=== PATIENT | female | born 1985 | race Caucasian/White ===

== ENCOUNTER → 2016-10-01 | Outpatient (CLI) | payer BC ==
[~2016-10-01] MED LIST: BCPILLS PO; MULT-506 PO
== END | disposition home or self-care (01) ==
LOC: C.PATHSPEC 17:35
PROVIDERS: ATTEND Obstetrics & Gynecology
DX: R87.612 Low grade squamous intraepithelial lesion on cytologic smear of cervix (LGSIL) (principal); N72 Inflammatory disease of cervix uteri

== ENCOUNTER → 2016-11-03 | Day surgery (SDC) | payer BC ==
[2016-10-06 14:49] VITALS: Ht 167.6 cm; Wt 94.1 kg
--- NOTE | 2016-10-25 10:14 | HISTORY & PHYSICAL EXAMINATION ---
DATE OF ADMISSION: 11/03/2016 The patient is for surgery on 11/03/2016. HISTORY OF PRESENT ILLNESS: The patient is a 31-year-old old white female 0 who is for LEEP of the cervix as well as excision of vulvar lesions. The patient had low grade KRISTA on Pap February 2015. Colposcopy was carried out and this was negative. Repeat Pap smear June 2016 was read as low grade KRISTA, cannot rule out high grade KRISTA. HPV test at that time was negative. Colposcopy was performed again and a biopsy at this time showed low grade KRISTA. The patient is also noted to have skin changes, just outside the hymenal ring at 3 and 9 o'clock. She is unable to tolerate close exam or biopsy of these areas. The patient is therefore scheduled for LEEP to treat and further evaluate the findings of cervical dysplasia and also for excision of the skin lesions at the vaginal introitus. The patient is presently using control pills for contraception. PAST MEDICAL HISTORY: ALLERGIES: None. MEDICATIONS: She takes Tri-Legest Fe 07-25/-/35 control pills. She also takes a daily multivitamin. ILLNESSES: Cervical dysplasia as above. PAST MEDICAL HISTORY: The patient has had chickenpox. PAST SURGICAL HISTORY: She has had wisdom teeth removed. FAMILY HISTORY:Her mother has hypertension. Her paternal grandfather has cardiac disease and diabetes. SOCIAL HISTORY: Patient denies smoking cigarettes. She does drink alcohol occasionally. PHYSICAL EXAMINATION: VITAL SIGNS: Height 5 foot 5 inches, weight 212 pounds, blood pressure 124/82. HEAD, EYES, EARS, NOSE, AND THROAT: Grossly within normal limits. NECK: Supple without masses. CHEST: Her lungs are clear without wheezing. HEART: Regular rate and rhythm. No murmurs, gallops or rubs. ABDOMEN: Soft, nontender with no masses palpable. PELVIC: External genitalia. The patient does have areas of roughened mucosa just outside the hymenal ring at 3 and 9 o'clock. Vagina is pink and stimulated. Cervix there are no obvious visible lesions. Uterus within normal limit size, nontender, adnexa nontender with no masses palpable. EXTREMITIES: No cyanosis, clubbing or edema. IMPRESSION: Cervical dysplasia and vulvar skin lesions. PLAN: The patient is for loop electrosurgical excision procedure of the cervix. She is also for excision of vulvar lesions. We have discussed the risks of infection, bleeding, damage to surrounding structures, possible transfusion, risk of anesthesia as well as risk of incompetent cervix and cervical scarring. The patient wishes to proceed with the above surgery. DUGLAS
[~2016-11-03] VITALS: Ht 167.6 cm; Wt 94.1 kg
[~2016-11-03] MED LIST changes: +ATROPINE SULFATE 0.1 MG/ML 5ML SYR IV PRN; +DEXAMETHASONE SOD INJ 4 MG/ML VIAL ONE; +EpHEDrine SULFATE INJ 50 MG/ML AMP IV PRN; +FENTANYL CITRATE INJ 50 MCG/1 ML 2 ML VIAL IV PRN; +FENTANYL CITRATE INJ 50 MCG/1 ML 2 ML VIAL ONE; +FERRIC SUBSULFATE 8 GM VIAL ONE; +FLUMAZENIL 0.1 MG/1 ML 10 ML VIAL IV PRN; +IBUPROFEN 600 MG TAB PO PRN; +IODINE SOLN STRONG 14 ML ONE; +KETOROLAC TROMETHAMINE 30 MG/ML VIAL ONE; +LACTATED RINGER'S 1000ML 1,000 ML IV SCH; +LIDOCAINE HCL 2% 2 ML VIAL (20MG/ML) ONE; +LIDOCAINE/EPINEPHRINE 1% INJ 50 ML VIAL ONE; +MIDAZOLAM HCL 1 MG/ML 2ML VIAL ONE; +NALOXONE HCL 0.4 MG/1 ML VIAL/CARP IV PRN; +ONDANSETRON INJ 2 MG/ML 2 ML VIAL IV PRN; +ONDANSETRON INJ 2 MG/ML 2 ML VIAL ONE; +PROMETHAZINE HCL INJ 12.5 MG in SODIUM CHLORIDE 0.9% 50ML 50 ML IV PRN; +PROPOFOL IV EMULSION 10 MG/ML 20 ML VIAL IV ONE; +SODIUM CHLORIDE 0.9% 1000ML 1,000 ML IV SCH; +SUCCINYLCHOLINE CHLORIDE 20 MG/ML 10 ML VIAL IV ONE
--- NOTE | 2016-11-03 06:47 | History & Physical Bridge - SC ---
H&P Re-Evaluation Bridge Note: I have examined the patient, reviewed the History & Physical and in the interval since the performance of the History & Physical I have noted the following changes of clinical significance: No changes noted
--- NOTE | 2016-11-03 07:48 | [facility] Post Operative Brief Note ---
Immediate Operative Summary Operative Date November 03, 2016. Pre-Operative Diagnosis Cervical dysplasia, vulvar lesion Post-Operative Diagnosis Same with pathology pending Procedure(s) Performed Loop Electrosurgical Excision Procedure; Vulvar Lesion Excision Surgeon Dr. Rodríguez Electric System Operator Surgeon(s) None Estimated Blood Loss 30 ml Findings See dictated note. Specimens A.) LEEP B.) Left Vulvar Lesion C.) Endocervix D.) Endocervical Curettings E.) Biopsy Hymenal Ring Complication(s) None Disposition Recovery Room / PACU
--- NOTE | 2016-11-03 08:01 | Discharge Instructions-SurgCtr ---
Discharge Instructions Date of Service November 03, 2016. Visit Reason for Visit: Cervical dysplasia, vulvar lesion Discharge Discharge Diagnosis / Problem: S/P LEEP of cervix and excision of vulvar lesion Discharge Goals Goal(s): Diagnostic testing, Therapeutic intervention Activity Recommendations Activity Limitations: per Instructions/Follow-up section ACTIVITY RECOMMENDATIONS: Normal activity the day after procedure with the following exceptions/ limitations: 1. No strenuous activity for 2-3 days. 2. Nothing in vagina for four weeks. 3. No heavy lifting greater than 10 pounds for 3 days. 4. No tampons, douches or intercourse until cleared by physician. 5. You may drive when you feel capable after 24 hours. 6. You may bath or shower. 7. You may climb stairs without restrictions. Anesthesia . Post Anesthesia Instructions: If you have had General Anesthesia or IV Sedation: * Do not drive today. * Resume driving when surgeon permits. * Do not make important decisions or sign legal documents today. * Call surgeon for: 1. Temperature elevations greater than 101 degrees F. 2. Uncontrollable pain. 3. Excessive bleeding. 4. Persistent nausea and vomiting. 5. Medication intolerance (nausea, vomiting or rash). * For nausea and vomiting use only clear liquids such as: tea, soda, bouillon until nausea subsides, then gradually increase diet as tolerated. * If you have any concerns or questions, call your surgeon's office. If physician is unavailable and it is an emergency, call 911 or go to the nearest emergency room. . Instructions / Follow-Up Instructions / Follow-Up ACTIVITY RECOMMENDATIONS: Normal activity the day after procedure with the following exceptions/ limitations: 1. No strenuous activity for 2-3 days. 2. Nothing in vagina for four weeks. 3. No heavy lifting greater than 10 pounds for three days. 4. No tampons, douches or intercourse until cleared by physician. 5. You may drive when you feel capable after 24 hours. 6. You may bath or shower. 7. You may climb stairs without restrictions. 8. Start sitz baths tomorrow evening and take 1-2 stiz baths daily for one week , otherwise may shower as desired starting tomorrow morning. 9. Call for any foul discharge, persistent cramping or heavy bleeding. 10. Call for an appointment with Dr Rodríguez in 3-4 weeks, [phone]. Diet Recommendations Home Diet: resume previous diet Procedures Procedures Performed: Loop Electrosurgical Excision Procedure; Vulvar Lesion Excision Pending Studies Studies pending at discharge: yes List of pending studies: We will call you with the pathology reports from tissue removed. Medical Emergencies . Who to Call and When: Medical Emergencies: If at any time you feel your situation is an emergency, please call 911 immediately. . Non-Emergent Contact Non-Emergency issues call your: Blue Leather Setter Call Non-Emergent contact if: temperature is above 100.5, your pain is not controlled, wound has increased drainage, wound has increased redness, wound has increased pain . . "Provider Documentation" section prepared by Chanda Rodríguez. .
--- NOTE | 2016-11-03 08:15 | OPERATIVE REPORT ---
DATE OF OPERATION: 11/03/2016 PREOPERATIVE DIAGNOSES: Cervical dysplasia and vulvar lesion. POSTOPERATIVE DIAGNOSES: Same with pathology pending. PROCEDURE: Loop electrosurgical excision procedure of the cervix and excision of vulvar lesions. SURGEON: Dr. Chanda Rodríguez. ANESTHESIA: General. ANESTHESIOLOGIST: Dr. Patiño. PROCEDURE: The patient was taken to the operating room where general anesthesia was administered. After an adequate level was obtained, she was placed in dorsal lithotomy position. Vulva, vagina and cervix were prepped with Betadine solution. The patient's bladder was drained. Weighted speculum was placed in the posterior fornix of the vagina. The cervix was grasped with an Allis clamp. The cervix was then painted with Lugol's solution. There were no nonstaining areas visible. The large loop was then used to excise a LEEP specimen. The specimen was obtained in 2 pieces. The smaller loop was then used to excise an endocervical specimen. Finally, endocervical curettage was performed and this tissue was sent to pathology as well. Hemostasis was then obtained with ball tip cautery and with Monsel's solution. Attention was then turned to the vulva. There was an area of roughened skin just outside the hymenal ring on the patient's left. A long elliptical portion of skin was removed, approximately 6 mm in width x 1.5 cm. This was sent to pathology. This defect was closed with interrupted sutures of 4-0 chromic catgut. There was also a warty appearance to some tissue of the hymenal ring in that area and this was removed and sent to pathology as well. Hemostasis was obtained with cautery and a suture of 4-0 chromic catgut. At this point, the procedure was ended. The patient tolerated the procedure and was taken to the recovery room in good condition. Estimated blood loss 30 mL. I attest to the content of the Intraoperative Record and any orders documented therein. Any exceptions are noted below. DUGLAS
[2016-11-03 08:25] VITALS: TEMP 37.2
--- NOTE | 2016-11-03 08:42 | Anesthesiology Progress Note ---
Anesthesia Post Op Note Date & Time November 03, 2016 at 08:42 Vital Signs Pain Intensity: 0 Vital Signs Past 12 Hours Date Time Temp Pulse Resp B/P Pulse Ox O2 Delivery O2 Flow Rate FiO2 11/03/16 08:25 37.2 62 16 125/83 100 Room Air 11/03/16 08:18 67 21 11/03/16 08:18 66 21 99 11/03/16 08:17 122/80 11/03/16 08:16 37.0 73 20 137/93 100 Room Air 11/03/16 08:15 137/93 11/03/16 08:13 65 23 100 11/03/16 08:13 65 23 11/03/16 08:10 133/93 11/03/16 08:08 72 18 11/03/16 08:08 72 18 100 11/03/16 08:05 132/87 11/03/16 08:03 72 23 100 11/03/16 08:03 72 23 11/03/16 08:01 133/79 11/03/16 07:58 80 19 11/03/16 07:58 81 19 100 11/03/16 07:57 79 18 100 11/03/16 07:57 78 18 11/03/16 07:55 133/82 11/03/16 07:52 36.5 91 12 130/90 100 Diffusion Mask 6 11/03/16 07:52 83 19 11/03/16 07:52 82 19 100 11/03/16 06:29 37.1 84 20 133/88 100 Room Air Notes Mental Status: alert / awake / arousable, participated in evaluation Pt Amnestic to Procedure: Yes Nausea / Vomiting: adequately controlled Pain: adequately controlled Airway Patency, RR, SpO2: stable & adequate BP & HR: stable & adequate Hydration State: stable & adequate Anesthetic Complications: no major complications apparent
[2016-11-03 08:44] VITALS: BP 119/83; PULSE 64; O2SAT 100
--- NOTE | 2016-11-03 09:52 | Anesthesia Progress Nt - [facility] ---
Anesthesia Post Op Note Date & Time November 03, 2016 at 09:52 Vital Signs Pain Intensity: 0 Vital Signs Past 12 Hours Date Time Temp Pulse Resp B/P Pulse Ox O2 Delivery O2 Flow Rate FiO2 11/03/16 08:44 64 16 119/83 100 Room Air 11/03/16 08:25 37.2 62 16 125/83 100 Room Air 11/03/16 08:18 67 21 11/03/16 08:18 66 21 99 11/03/16 08:17 122/80 11/03/16 08:16 37.0 73 20 137/93 100 Room Air 11/03/16 08:15 137/93 11/03/16 08:13 65 23 100 11/03/16 08:13 65 23 11/03/16 08:10 133/93 11/03/16 08:08 72 18 11/03/16 08:08 72 18 100 11/03/16 08:05 132/87 11/03/16 08:03 72 23 100 11/03/16 08:03 72 23 11/03/16 08:01 133/79 11/03/16 07:58 80 19 11/03/16 07:58 81 19 100 11/03/16 07:57 79 18 100 11/03/16 07:57 78 18 11/03/16 07:55 133/82 11/03/16 07:52 36.5 91 12 130/90 100 Diffusion Mask 6 11/03/16 07:52 83 19 11/03/16 07:52 82 19 100 11/03/16 06:29 37.1 84 20 133/88 100 Room Air Notes Mental Status: alert / awake / arousable, participated in evaluation Pt Amnestic to Procedure: Yes Nausea / Vomiting: adequately controlled Pain: adequately controlled Airway Patency, RR, SpO2: stable & adequate BP & HR: stable & adequate Hydration State: stable & adequate Anesthetic Complications: no major complications apparent
== END | disposition home or self-care (01) ==
LOC: X.SURG 06:10
PROVIDERS: ATTEND Obstetrics & Gynecology
DX: N87.0 Mild cervical dysplasia (principal); N90.89 Other specified noninflammatory disorders of vulva and perineum; A63.0 Anogenital (venereal) warts; Z82.49 Family history of ischemic heart disease and other diseases of the circulatory system; Z83.3 Family history of diabetes mellitus